=== PATIENT | female | born 1985 | race Caucasian/White ===

== ENCOUNTER 2025-07-06 14:00 | Inpatient (IN) | payer BC ==
[2025-07-06] MEDS ORDERED: Ketorolac Tromethamine 30 MG (1 mL) VIAL IVP PRN (15:22)
[2025-07-06] MEDS ORDERED: Meperidine HCl/PF 25 MG (1 mL) VIAL SLOW IVP PRN (15:22)
[2025-07-06] MEDS ORDERED: Ondansetron PF 4 MG/2 ML Vial IVP PRN (15:22)
[2025-07-06] MEDS ORDERED: diphenhydrAMINE 50 MG/ML VIAL IVP PRN (15:22)
[2025-07-06 15:40] LABS: Hematocrit 37.4 % (34.9-44.5); Hemoglobin 12.7 g/dL (12.0-15.5); Mean Corpuscular Hemoglobin 28.7 pg (27.0-33.0); Mean Corpuscular Volume 84.4 fL (81.6-98.3); Red Blood Cell (RBC) Count 4.43 10x6/uL (3.90-5.03); White Blood Cell (WBC) Count 11.55 10x3/uL (3.5-10.5)
[2025-07-06 15:55] LABS: Hep B Surf Ag - L&D Non-Reactive S/CO (NonReactive)
[2025-07-06 15:56] LABS: Syphilis Antibody Index 0.06 S/CO (<1.00 Non-Reactive)
[2025-07-06 16:06] VITALS: BMI 38.6
[2025-07-06 16:08] LABS: Platelet Count 198 10x3/uL (130-400)
[2025-07-06 16:21] LABS: ALT (SGPT) 11 U/L (Less than 34); AST (SGOT) 15 U/L (11-34); Albumin 2.8 g/dL (3.1-4.5); Alkaline Phosphatase 89 U/L (40-110); Anion Gap 16 mmol/L (10-20); BUN (Urea Nitrogen) 7 mg/dL (7.0-18.7); Bilirubin, Total 0.3 mg/dL (0.3-1.2); Calc. Creatinine Clearance 210 mL/min (70-130); Calcium 8.5 mg/dL (7.8-10.44); Carbon Dioxide 17 mmol/L (22-29); Chloride 106 mmol/L (98-107); Globulin 4.0 g/dL (2.4-3.5); Glucose 73 mg/dL (70-105); Potassium 3.6 mmol/L (3.5-5.1); Sodium 135 mmol/L (136-145)
[2025-07-06] MEDS: Ketorolac Tromethamine 30 MG (1 mL) VIAL IVP SCH (19:45)
[2025-07-06] MEDS: Ondansetron PF 4 MG/2 ML Vial IVP PRN (20:59)
[2025-07-06] MEDS ORDERED: Bisacodyl 10 MG SUPP PR PRN (22:06)
[2025-07-06] MEDS ORDERED: Boostrix 0.5 ML (Tdap) VIAL (>/=7 yrs of age) IM ONE (22:06)
[2025-07-06] MEDS ORDERED: diphenhydrAMINE 25 MG CAP PO PRN (22:06)
[2025-07-06] MEDS ORDERED: HYDROcodone/Acetaminophen 5/325 mg Tablet PO PRN (22:06)
[2025-07-06] MEDS ORDERED: hydrALAZINE 20 MG/ML VIAL SLOW IVP PRN (22:06)
[2025-07-06] MEDS ORDERED: Acetaminophen 325 MG TAB PO PRN (22:06)
[2025-07-06] MEDS: Erythromycin Base 0.5% Oint 1 GM TUBE ONE (22:18)
[2025-07-06] MEDS: Ondansetron PF 4 MG/2 ML Vial ONE (22:19)
[2025-07-06] MEDS: CEFAZOLIN 2 GM VIAL ONE (22:19)
[2025-07-06] MEDS: Dexamethasone 10 MG/ML VIAL ONE (22:19)
[2025-07-06] MEDS: PHENYLEPHRINE-NS 100 MCG/ML 10 ML SYRINGE ONE ×2 (22:20)
[2025-07-06] MEDS: Oxytocin 10 UNITS/ML VIAL ONE (22:20)
[2025-07-07] MEDS: Ketorolac Tromethamine 30 MG (1 mL) VIAL IVP PRN (01:27)
[2025-07-07 06:09] LABS: Hematocrit 31.7 % (34.9-44.5); Hemoglobin 10.7 g/dL (12.0-15.5); Mean Corpuscular Hemoglobin 28.9 pg (27.0-33.0); Mean Corpuscular Volume 85.7 fL (81.6-98.3); Platelet Count 137 10x3/uL (150-450); Red Blood Cell (RBC) Count 3.70 10x6/uL (3.90-5.03); White Blood Cell (WBC) Count 14.29 10x3/uL (3.5-10.5)
[2025-07-07] MEDS: Simethicone Chewable 80 MG TAB PO PRN (08:01)
[2025-07-07] MEDS: HYDROcodone/Acetaminophen 5/325 mg Tablet PO PRN (08:02)
[2025-07-07] MEDS: Ibuprofen 800 MG TAB PO SCH (21:18)
[2025-07-08 16:43] VITALS: BP 138/73; TEMP 97.7
== END 2025-07-08 17:40 | disposition home or self-care (01) | DRG 788 ==
LOC: CSHLD 14:00 → EEVIPCON 14:00 → CSHPED 21:45
PROVIDERS: ADMIT Obstetrics & Gynecology; ATTEND Obstetrics & Gynecology
PROC: 10D00Z1 Extraction of Products of Conception, Low, Open Approach (ICD-10-PCS; principal; 2025-07-06)
PROC: 4A1HXCZ Monitoring of Products of Conception, Cardiac Rate, External Approach (ICD-10-PCS; 2025-07-06)
DX: O34.211 Maternal care for low transverse scar from previous cesarean delivery (principal); O14.04 Mild to moderate pre-eclampsia, complicating childbirth; O24.420 Gestational diabetes mellitus in childbirth, diet controlled; Z3A.37 37 weeks gestation of pregnancy; Z37.0 Single live birth; Z79.899 Other long term (current) drug therapy; Z79.82 Long term (current) use of aspirin
CPT/HCPCS: 36415; 36416; 51702; 80053; 85027; 86780; 87340; J1100; J1885; J2274; J2405; J2590